=== PATIENT | male | born 1980 | race African-American/Black ===

== ENCOUNTER 2023-06-22 15:59 | Emergency (ER) | payer MEDICAID ==
[~2023-06-22] VITALS: Ht 182.9 cm; Wt 78.0 kg
[2023-06-22 16:12] VITALS: O2SAT 99
[2023-06-22] MEDS ORDERED: IBUPROFEN 600MG TABLET PO ONE (16:30)
[2023-06-22] MEDS ORDERED: BACITRACIN ZINC OINT UDPKT TOP ONE (16:30)
[2023-06-22] MEDS ORDERED: TETANUS, DIPHTHERIA, PERTUSSIS VAC/PF 0.5ML (>10YR OLD) IM ONE (16:30)
[2023-06-22] MEDS ORDERED: AMOX1TAB16 MT (19:27)
[2023-06-22] MEDS ORDERED: BO1 TP (19:27)
[2023-06-22 20:06] VITALS: BP 136/96; PULSE 82; RESP 16; TEMP 98.8
== END 2023-06-22 20:08 | disposition home or self-care (01) ==
LOC: ER 15:59
DX: S40.812A Abrasion of left upper arm, initial encounter (principal); J45.909 Unspecified asthma, uncomplicated; X58.XXXA Exposure to other specified factors, initial encounter; Y93.89 Activity, other specified; Y92.89 Other specified places as the place of occurrence of the external cause; Y99.8 Other external cause status
CPT/HCPCS: 99283

== ENCOUNTER 2025-01-31 13:02 | Emergency (ER) | payer OTHER, MEDICAID ==
[~2025-01-31] VITALS: Ht 182.9 cm; Wt 77.0 kg
[~2025-01-31 13:02] MED LIST: AMOX1TAB16 MT; BO1 TP
[2025-01-31 13:12] VITALS: O2SAT 98
[2025-01-31] MEDS: IBUPROFEN 400MG TABLET PO ONE (15:33)
[2025-01-31] MEDS ORDERED: IBUP-2437 MT (17:28)
[2025-01-31 19:34] VITALS: BP 174/105; PULSE 64; RESP 18; TEMP 37; O2SAT 98
== END 2025-01-31 19:35 | disposition home or self-care (01) ==
LOC: ER 13:02
DX: S16.1XXA Strain of muscle, fascia and tendon at neck level, initial encounter (principal); J45.909 Unspecified asthma, uncomplicated; M43.10 Spondylolisthesis, site unspecified; V49.9XXA Car occupant (driver) (passenger) injured in unspecified traffic accident, initial encounter; Y93.89 Activity, other specified; Y92.89 Other specified places as the place of occurrence of the external cause; Y99.8 Other external cause status
CPT/HCPCS: 71045; 99284

== ENCOUNTER 2025-02-04 15:10 | Emergency (ER) | payer OTHER, MEDICAID ==
[~2025-02-04] VITALS: Ht 177.8 cm; Wt 77.0 kg
[~2025-02-04 15:10] MED LIST changes: +IBUP-2437 MT
[2025-02-04 15:19] VITALS: O2SAT 98
[2025-02-04] MEDS ORDERED: LIDO-53 TP (19:11)
[2025-02-04] MEDS: IBUPROFEN 600MG TABLET PO ONE (19:41)
[2025-02-04] MEDS: LIDOCAINE 5% PATCH TOP SCH (19:42)
[2025-02-04 19:46] VITALS: BP 136/95; PULSE 77; RESP 20; TEMP 36.7; O2SAT 98
== END 2025-02-04 19:52 | disposition home or self-care (01) ==
LOC: ER 15:10
DX: S16.1XXA Strain of muscle, fascia and tendon at neck level, initial encounter (principal); M54.12 Radiculopathy, cervical region; R07.89 Other chest pain; J45.909 Unspecified asthma, uncomplicated; V89.2XXA Person injured in unspecified motor-vehicle accident, traffic, initial encounter; Y93.89 Activity, other specified; Y92.89 Other specified places as the place of occurrence of the external cause; Y99.8 Other external cause status
CPT/HCPCS: 99283